=== PATIENT | male | born 1985 | race African-American/Black ===

== ENCOUNTER 2020-12-22 07:08 | Outpatient (CLI) | payer MEDICAID ==
[~2020-12-22] VITALS: Ht 152.4 cm; Wt 50.5 kg
[2020-12-23] MEDS ORDERED: CALC-689 PO ×2 (14:37→14:43)
[2020-12-23] MEDS ORDERED: LEVO25CA4 PO (14:37)
[2020-12-23] MEDS ORDERED: MTC5V480 GT (14:37)
[2020-12-23] MEDS ORDERED: ASCO100024 PO ×2 (14:37→14:43)
[2020-12-23] MEDS ORDERED: FAMO40OR5 PO ×2 (14:37→14:43)
[2020-12-23] MEDS ORDERED: [UNRECOGNIZED DRUG - OTHER] (14:37)
[2020-12-23] MEDS ORDERED: POLY17PO54 PO ×2 (14:37→14:43)
[2020-12-23] MEDS ORDERED: [UNRECOGNIZED DRUG - OTHER] ×2 (14:37→14:43)
[2020-12-23] MEDS ORDERED: CARB100T6 PO (14:37)
[2020-12-23] MEDS ORDERED: CLON0.5T25 PO (14:37)
[2020-12-23] MEDS ORDERED: NYST60PO TP ×2 (14:37→14:43)
[2020-12-23] MEDS ORDERED: ERGOCALCIFEROL (14:37)
[2020-12-23] MEDS ORDERED: BACL10TA PO (14:37)
[2020-12-23] MEDS ORDERED: NUTR250L51 PO (14:37)
[2020-12-23] MEDS ORDERED: LACT10SO46 PO (14:37)
[2020-12-23] MEDS ORDERED: MONT5TAB23 PO (14:37)
[2020-12-23] MEDS ORDERED: PANT40GR PO ×2 (14:37→14:43)
== END 2020-12-23 15:23 | disposition home or self-care (01) ==
LOC: PREOP 07:08
PROVIDERS: ATTEND Dentist
DX: Z01.818 Encounter for other preprocedural examination (principal)

== ENCOUNTER 2020-12-29 08:02 | Day surgery (SDC) | payer MEDICAID ==
[2020-12-29] VITALS (8 sets, daily range): BP systolic 87–129; BP diastolic 47–94
[~2020-12-29] VITALS: Ht 152.4 cm; Wt 50.1 kg
[~2020-12-29 08:02] MED LIST: ASCO100024 PO; BACL10TA PO; CALC-689 PO; CARB100T6 PO; CLON0.5T25 PO; ERGOCALCIFEROL; FAMO40OR5 PO; LACT10SO46 PO; LEVO25CA4 PO; MONT5TAB23 PO; MTC5V480 GT; NUTR250L51 PO; NYST60PO TP; PANT40GR PO; POLY17PO54 PO; [UNRECOGNIZED DRUG - OTHER]; [UNRECOGNIZED DRUG - OTHER]
[2020-12-29] MEDS ORDERED: PHENYLEPHRINE 0.25% NASAL SPR (NEO-SYNEPHRINE) 15 ML NS ONE ×2 (09:51→10:00)
[2020-12-29] MEDS ORDERED: IBUPROFEN SUSP 100MG/5ML (MOTRIN) UDC PO ONE (10:00)
[2020-12-29] MEDS ORDERED: NS IV 500 ML 500 ML IV PRN (10:00)
--- NOTE | 2020-12-29 10:16 | Progress Note-Pre Operative ---
Pre-Operative Progress Note H&P Reviewed The H&P was reviewed, patient examined and no changes noted. Date Seen by Provider: Dec 29, 2020 Time Seen by Provider: 10:05 Date H&P Reviewed: Dec 29, 2020 Time H&P Reviewed: 10:05 Pre-Operative Diagnosis: Inabiltiy to cooperate in dental office, dental caries LEIGHA GUERRERO DMD Dec 29, 2020 10:16
[2020-12-29] MEDS ORDERED: ROCURONIUM 10 MG/ML 5 ML SYRINGE IV ONE (10:17)
[2020-12-29] MEDS ORDERED: LIDOCAINE PF 2% 5 ML (XYLOCAINE) VIAL ONE (10:17)
[2020-12-29] MEDS ORDERED: GLYCOPYRROLATE 0.2 MG/ML (ROBINUL) 2 ML VIAL ONE (10:17)
[2020-12-29] MEDS ORDERED: ONDANSETRON 4 MG/2 ML (SDV) Z0FRAN ONE (10:17)
[2020-12-29] MEDS ORDERED: NEOSTIGMINE 3 MG/3 ML VIAL ONE (10:17)
[2020-12-29] MEDS ORDERED: proPOfol 200 MG/20 ML (DIPRIVAN) VIAL IV ONE (10:17)
[2020-12-29] MEDS ORDERED: fentaNYL INJ 100 MCG/2 ML AMP ONE (10:17)
[2020-12-29] MEDS ORDERED: MIDAZOLAM 2 MG/2 ML (VERSED) VIAL ONE (10:17)
[2020-12-29] MEDS ORDERED: PHENYLEPHRINE 100 MCG/ML 10 ML (ANESTHESIA) SYR ONE (10:35)
[2020-12-29] MEDS ORDERED: SUGAMMADEX 500 MG/5 ML VIAL (BRIDION) IV ONE (10:48)
[2020-12-29] MEDS ORDERED: SEVOFLURANE (ULTANE) 15 ML INHAL SOLN ONE (10:53)
[2020-12-29] MEDS ORDERED: APAP 325 MG/10.15 ML LIQ (TYLENOL) UDC PO ONE (12:00)
[2020-12-29] MEDS ORDERED: IBUPROFEN 800 MG (MOTRIN) TAB PO ONE (12:15)
[2020-12-29] MEDS ORDERED: IBUPROFEN SUSP 100MG/5ML (MOTRIN) UDC ONE (12:30)
--- OUTSIDE RECORDS SUMMARY | 2020-12-29 12:30 | XMS REPORT | Clinical Summary ---
Author Author [facility] Organization [facility] Address Unknown Phone Unavailable Care Team Providers Care Belt Machine Operator Name Role Phone Unverified, Unverified Md PCP Unavailable Source Comments Some departments are not documenting in the electronic medical record. If you d o not see the information that you expected, contact Release of Information in [facility] Information Management department at [phone] for further assistan ce in locating additional records.[facility] Allergies Not on File Medications Not on file Active Problems Not on file Social History Date Tobacco Use Types Packs/Day Years Used Never Assessed Sex Assigned at Date Recorded Not on file Last Filed Vital Signs Not on file Plan of Treatment Health Maintenance Due Date Last Done Comments HIV SCREENING 09/09/2002 DTAP/TDAP VACCINES (1 - 09/09/2005 Tdap) HEPATITIS C SCREENING 09/09/2005 PHYSICAL (COMPREHENSIVE) 09/09/2005 EXAM INFLUENZA VACCINE 02/12/2021 Results Not on filefrom Last 3 Months
[2020-12-29] MEDS ORDERED: HEParin (CENTRAL IV FLUSH) 500 UNIT/5 ML SYR ONE (12:44)
[2020-12-29] MEDS ORDERED: HEParin (CENTRAL IV FLUSH) 500 UNIT/5 ML SYR IV ONE (12:45)
--- NOTE | 2020-12-29 14:06 | Anesthesia-General Post-Op ---
General Patient Condition Mental Status/LOC: Same as Preop Cardiovascular: Satisfactory Nausea/Vomiting: Absent Respiratory: Satisfactory Pain: Controlled Complications: Absent Post Op Complications Complications None Follow Up Care/Instructions Patient Instructions None needed. Anesthesia/Patient Condition Patient Condition Patient was seen after the procedure and he was doing well, no complaints, stable vital signs, no apparent adverse anesthesia problems. REJI CAMACHO DO Dec 29, 2020 14:06
--- NOTE | 2020-12-30 15:36 | OPERATIVE REPORT ---
DATE OF SERVICE: PREOPERATIVE DIAGNOSIS: Dental caries and inability to cooperate in the dental office. POSTOPERATIVE DIAGNOSIS: Confirmed and unchanged. SURGICAL PROCEDURE PERFORMED: Dental rehabilitation. DESCRIPTION OF PROCEDURE: After suitable premedication, nasoendotracheal intubation and general anesthesia, the following procedures were carried out. Local anesthesia consisting of approximately 1.7 mL of 2% lidocaine 1:100,000 with epinephrine were infiltrated. Decay noted clinically on tooth #22, decay removed, composite preparation made. Tooth was isolated, etched, bonded and restored with Ketac Bibi on the lingual surface. Prophy completed. Hand scalers and Cavitron used to debride calculus, existing stainless steel crowns and restorations checked. No recurrent decay noted. No open margins. Fluoride varnish completed. The patient was extubated and taken to recovery in satisfactory condition. Postoperative instructions were reviewed with guardian. Job ID: [id number] DocumentID: [id number] Dictated Date: 12/30/2020 12:56:57 Business Performance Advisor Date: 12/30/2020 15:36:06 Dictated By: LEIGHA GUERRERO DDS
== END 2020-12-29 13:00 | disposition home or self-care (01) ==
LOC: SDC 08:02
PROVIDERS: ATTEND Dentist
DX: K02.9 Dental caries, unspecified (principal); K21.9 Gastro-esophageal reflux disease without esophagitis; F32.9 Major depressive disorder, single episode, unspecified; G80.1 Spastic diplegic cerebral palsy; T74.4XXA Shaken infant syndrome, initial encounter; Z79.890 Hormone replacement therapy; Z79.899 Other long term (current) drug therapy
CPT/HCPCS: 87081